=== PATIENT | female | born 1940 | race Caucasian/White ===

== ENCOUNTER 2016-10-24 11:39 | Inpatient (IN) | payer OTHER ==
--- NOTE | 2016-10-24 11:43 | EDPHY ---
H & P Time Seen by Provider: 10/24/16 11:41 HPI/ROS: Chief complaint. Stroke activation HPI. 75-year-old female here emergent by EMS with stroke activation. Apparently last seen normal about 30 minutes ago. Found on floor with left facial droop and decreased use of left arm and left leg. Patient is awake but really he can only murmur answers yes or no. Paperwork comes with the patient of DNR and no intubation or parental feedings. Patient is unable to tell me whether she is having headache, chest discomfort or trouble breathing. Apparently from review of paperwork she has not had similar symptoms previously. ROS Constitutional. no fever/chills, no weakness Eyes. no problems with vision ENT. no sore throat, no nasal drainage Cardiovascular. no chest pain Respiratory. no shortness of breath, no cough Abdominal. no abdominal pain, no nausea/vomiting, no diarrhea . no problems urinating MS. no calf pain/swelling, no neck/back pain, no joint pain Skin. no rash Lymph. no swollen glands Neuro. Left facial droop and left arm and leg weakness Past Medical/Surgical History: Dementia, hypertension Social History: , nonsmoker, no alcohol Physical Exam: General Appearance: Arousable well-developed female moderate distress. Vital signs are stable Eyes: Pupils equal and round no pallor or injection. ENT, Mouth: Mucous membranes are moist. Respiratory: There are no retractions, lungs are clear to auscultation. Cardiovascular: Regular rate and rhythm. Gastrointestinal: Abdomen is soft and nontender, no masses, bowel sounds normal. Neurological: Awake and alert, sensory and motor exams grossly normal. Speech is slurred. Obvious left facial droop. Patient really can't participate in neurologic exam due to altered mental status. She does murmur yes or no to questions but does not open her eyes to command. She does not move her arms or legs to commands. Left-sided weakness Skin: Warm and dry, no rashes. Musculoskeletal: Neck is supple nontender. Extremities symmetrical, full range of motion. Psychiatric: Patient is oriented X 1, there is no agitation. Constitutional: Initial Vital Signs Heart Rate 90 10/24/16 12:00 Respiratory Rate 20 10/24/16 12:00 Blood Pressure 159/82 H 10/24/16 12:00 O2 Sat (%) 95 10/24/16 12:00 O2 Delivery Mode Nasal Cannula O2 (L/minute) 2 Allergies/Adverse Reactions: alendronate sodium Allergy (Verified 10/24/16 11:53) pravastatin Allergy (Verified 10/24/16 11:53) rosuvastatin [From Crestor] Allergy (Verified 10/24/16 11:53) Sulfa (Sulfonamide Antibiotics) Allergy (Verified 10/24/16 11:53) Home Medications: Medication Instructions Recorded Acetaminophen [Tylenol ES 500 mg 1,000 mg PO BID 10/24/16 (*)] Acyclovir [Zovirax 400 mg (*)] 400 mg PO 5XD PRN 10/24/16 Aspirin EC [Aspirin EC 81 mg (*)] 81 mg PO HS 10/24/16 Bupropion HCl 150 mg PO BID 10/24/16 Calcium Carbonate [Tums 500MG (*)] 1,000 mg PO DAILY 10/24/16 Calcium Carbonate [Tums 500MG (*)] 500 mg PO BID 10/24/16 Cholecalciferol Vit D3 [Vitamin D3 2,000 units PO DAILY 10/24/16 (*)] Cholecalciferol Vit D3 [Vitamin D3 2,000 units PO DAILY 10/24/16 (*)] Docusate Sodium [Colace 100 MG (*)] 100 mg PO BID 10/24/16 Herbals/Supplements -Info Only 1 ea PO DAILY 10/24/16 Lisinopril [Zestril 20 mg (*)] 20 mg PO HS 10/24/16 Lovastatin 40 mg PO HS 10/24/16 Omeprazole [Prilosec 20 mg] 20 mg PO DAILY 10/24/16 Sennosides 17.2 mg PO BID 10/24/16 amLODIPine BESYLATE [Norvasc 10 mg 10 mg PO HS 10/24/16 (*)] Medical Decision Making - Diagnostics EKG Interpretation: EKG interpreted by me shows normal sinus rhythm with normal interval and axis. QRS is otherwise normal there is no significant ST elevation or depression. No arrhythmia. The rate is 88 Imaging Results: Imaging Impressions Head CT 10/24/16 11:41 Impression: Large right parietal hemorrhage with intraventricular component. Initial results called to Dr. Low Mann at 11:55 AM. Final concordant results are dictated at 12:09 PM. General information for patients regarding this examination can be found at [email or web address]. If you have questions or comments about this report, please contact me at (hospital) or [phone] (cell). Head CT shows large right parietal hemorrhage with midline shift Procedures: IV normal saline, monitor. I-STAT ED Course/Re-evaluation: I met the patient on arrival. I took a history from EMS. I performed physical exam which showed a left facial weakness and left-sided weakness. I have consulted and discussed case with Dr. Kaur who will see the patient in the emergency department I consulted and discussed the case with Dr. Grande, neurosurgery, who will see the patient in the emergency department Patient is medicated with morphine for comfort measures I have spoken to a son who lives here and comes to the emergency department. I have also spoken to his son, Farhad, who is an infectious disease physician in [place]. I explained to him the circumstances and imaging study results. We reviewed the patient's advanced directive and treatment plan. Her sons agree with supportive measures. They are aware this is likely fatal injury Differential Diagnosis: I considered CVA, in her cranial bleeding, medication ingestion. I also considered trauma from fall Critical Care Time: Critical care time exclusive procedures 35 minutes - Data Points Laboratory Results: Laboratory Results 10/24/16 11:30 10/24/16 11:30 10/24/16 10/24/16 10/24/16 11:39 11:30 11:30 WBC RBC Hgb POC Hgb 16.0 gm/dL gm/dL (12.6-16.3) Hct POC Hct 47 % % (38-47) MCV MCH MCHC RDW Plt Count MPV Neut % (Auto) Lymph % (Auto) Rabun % (Auto) Eos % (Auto) Baso % (Auto) Nucleat RBC Rel Count Absolute Neuts (auto) Absolute Lymphs (auto) Absolute Monos (auto) Absolute Eos (auto) Absolute Basos (auto) Absolute Nucleated RBC Immature Gran % Immature Gran # PT 12.7 SEC SEC (12.0-15.0) INR 0.96 (0.83-1.16) POC Sodium 142 mEq/L mEq/L (134-144) Sodium 139 mEq/L mEq/L (134-144) POC Potassium 4.1 mEq/L mEq/L (3.3-5.0) Potassium 4.5 mEq/L mEq/L (3.5-5.2) POC Chloride 105 mEq/L mEq/L (97-110) Chloride 105 mEq/L mEq/L (97-110) Carbon Dioxide 20 mEq/l L mEq/l (22-31) Anion Gap 14 mEq/L mEq/L (8-16) POC BUN 18 mg/dL mg/dL (7-23) BUN 17 mg/dL mg/dL (7-23) Creatinine 0.6 mg/dL mg/dL (0.6-1.0) POC Creatinine 0.6 mg/dL mg/dL (0.6-1.0) Estimated GFR > 60 Glucose 167 mg/dL H mg/dL (70-100) POC Glucose 175 mg/dL H mg/dL (70-100) Calcium 9.7 mg/dL mg/dL (8.5-10.4) 10/24/16 11:30 WBC 15.72 10^3/uL H 10^3/uL (3.80-9.50) RBC 5.32 10^6/uL 10^6/uL (4.18-5.33) Hgb 15.1 g/dL g/dL (12.6-16.3) POC Hgb Hct 45.1 % % (38.0-47.0) POC Hct MCV 84.8 fL fL (81.5-99.8) MCH 28.4 pg pg (27.9-34.1) MCHC 33.5 g/dL g/dL (32.4-36.7) RDW 14.8 % % (11.5-15.2) Plt Count 245 10^3/uL 10^3/uL (150-400) MPV 10.6 fL fL (8.7-11.7) Neut % (Auto) 89.3 % H % (39.3-74.2) Lymph % (Auto) 6.0 % L % (15.0-45.0) Rab[place] % (Auto) 4.0 % L % (4.5-13.0) Eos % (Auto) 0.0 % L % (0.6-7.6) Baso % (Auto) 0.1 % L % (0.3-1.7) Nucleat RBC Rel Count 0.0 % % (0.0-0.2) Absolute Neuts (auto) 14.02 10^3/uL H 10^3/uL (1.70-6.50) Absolute Lymphs (auto) 0.95 10^3/uL L 10^3/uL (1.00-3.00) Absolute Monos (auto) 0.63 10^3/uL 10^3/uL (0.30-0.80) Absolute Eos (auto) 0.00 10^3/uL L 10^3/uL (0.03-0.40) Absolute Basos (auto) 0.02 10^3/uL 10^3/uL (0.02-0.10) Absolute Nucleated RBC 0.00 10^3/uL 10^3/uL (0-0.01) Immature Gran % 0.6 % % (0.0-1.1) Immature Gran # 0.10 10^3/uL 10^3/uL (0.00-0.10) PT INR POC Sodium Sodium POC Potassium Potassium POC Chloride Chloride Carbon Dioxide Anion Gap POC BUN BUN Creatinine POC Creatinine Estimated GFR Glucose POC Glucose Calcium Medications Given: Discontinued Medications Morphine Sulfate (Morphine) 6 mg IVP EDNOW ONE Stop: 10/24/16 12:25 Last Admin: 10/24/16 13:12 Dose: 6 mg Point of Care Test Results: 10/24/16 11:39 POC Sodium 142 POC Potassium 4.1 POC Chloride 105 POC BUN 18 POC Creatinine 0.6 POC Glucose 175 H Departure - Departure Disposition: [facility] Inpatient Acute Clinical Impression: Intracranial bleed Condition: Critical
[2016-10-24 12:03] LABS: % IMMATURE GRANULYOCYTES 0.6 % (0.0-1.1); ADD DIFF? NO; ADD MORPH? NO; ADD SCAN? NO; ATYPICAL LYMPHOCYTE FLAG 0 (0-99); FRAGMENT RBC FLAG 0 (0-99); HEMATOCRIT 45.1 % (38.0-47.0); HEMOGLOBIN 15.1 g/dL (12.6-16.3); LEFT SHIFT FLG 0 (0-99); LIPEMIA HEMOLYSIS FLAG 80 (0-99); MEAN CELL HEMOGLOBIN 28.4 pg (27.9-34.1); MEAN CELL HEMOGLOBIN CONCENTR. 33.5 g/dL (32.4-36.7); MEAN CELL VOLUME 84.8 fL (81.5-99.8); MEAN PLATELET VOLUME 10.6 fL (8.7-11.7); PLATELET CLUMPS FLAG 20 (0-99); PLATELET COUNT 245 10^3/uL (150-400); RED BLOOD CELL COUNT 5.32 10^6/uL (4.18-5.33); RED CELL DISTRIBUTION WIDTH 14.8 % (11.5-15.2)
[2016-10-24 12:15] LABS: ANION GAP 14 mEq/L (8-16); CALCIUM 9.7 mg/dL (8.5-10.4); CARBON DIOXIDE 20 mEq/l (22-31); CHLORIDE 105 mEq/L (97-110); CREATININE 0.6 mg/dL (0.6-1.0); GLOMERULAR FILTRATION RATE > 60; GLUCOSE 167 mg/dL (70-100); POTASSIUM 4.5 mEq/L (3.5-5.2); SODIUM 139 mEq/L (134-144)
[2016-10-24 12:22] LABS: INR 0.96 (0.83-1.16); PROTIME(PATIENT) 12.7 SEC (12.0-15.0)
--- NOTE | 2016-10-24 12:22 | CPEKG ---
Heart Rate: 88 RR Interval: 682 P-R Interval: 164 QRSD Interval: 82 QT Interval: 404 QTC Interval: 489 P [place]: 76 QRS [place]: 36 T Wave [place]: 60 EKG Severity - BORDERLINE ECG - EKG Impression: SINUS RHYTHM EKG Impression: PROBABLE LEFT ATRIAL ABNORMALITY EKG Impression: BORDERLINE PROLONGED QT INTERVAL Electronically Signed By: Low Mann 24-Oct-2016 15:50:46
[2016-10-24] MEDS ORDERED: PROMETHAZINE HCL 25 MG SUPPR PR PRN (14:45)
[2016-10-24] MEDS ORDERED: ONDANSETRON DISINTEGRATING 4 MG TAB PO PRN (14:45)
--- NOTE | 2016-10-24 15:15 | GCON ---
[f rep st] CONSULTATION CONSULTATION. DATE OF CONSULTATION: 10/24/2016 CONSULTNG SERVICE: Low Mann M.D., Emergency Medicine. REASON FOR CONSULT: Large intraparenchymal and intraventricular hemorrhage on the right side. HISTORY OF PRESENT ILLNESS: The patient is a 75-year-old female with multiple medical problems, a h istory of dementia who requires assistance at her place of living who was brought in as a stroke curly rt today for left-sided stroke symptoms. A head CT was performed and she was found to have a very l arge right-sided basal gangliar hemorrhage with extension into the ventricular system, some early hy drocephalus and midline shift. Her family is present and they have confirmed that her code status is DNR and she also has advance d irectives indicating she does not want aggressive medical measures or to be in a prolonged supportiv e state if her prognosis is poor. I talked to 2 of her sons about this including 1 son named Farhad hayes is an ID doctor in [place] and is currently in route to be here with his mother. PAST MEDICAL AND SURGICAL HISTORY: High blood pressure. ALLERGIES: Alendronate, pravastatin, rosuvastatin, and sulfa. HOME MEDICATIONS: Amlodipine, sennosides, bupropion, aspirin 81, Tylenol, lisinopril and Colace. FAMILY HISTORY: No known history of intracranial hemorrhage. SOCIAL HISTORY: Dependent, living in an assisted living facility. No alcohol, tobacco or drug abus e per family. Unable to obtain from the patient. REVIEW OF SYSTEMS: Unable to obtain from the patient given her near comatose state. PHYSICAL EXAMINATION: VITAL SIGNS: Blood pressure has ranged from 133-159 systolic to 82-105 systo lic since arrival to the ED. Heart rate 86-90, respiratory rate 16-20, saturations 95%-96% on 2 L n gary cannula. T current 36.2. NEUROLOGIC: The patient is asleep with rancorous breathing on the g urney. When you call her name her eyelids do quiver, but she does not open her eyes to voice or sti mulus. She does mumble yes/no very lowly and appropriately to questioning. She does follow simple commands on the right side but she has no motor function on the left. She is flaccid in terms of he r reflex exam on the left side. REVIEW OF IMAGING: I reviewed the patient's head CT and agree that it reveals a large basal ganglia r hemorrhage measuring 7.2 x 3.7 x 4.47 cm with a vfldo-nh-twig shift 6.2 mm, with some interventric ular extension. LABORATORY: White blood cell count 15.72, hemoglobin 15.1, platelet count 245, PT/INR 12.7/0.96. S odium 139, potassium 4.5, BUN 17, creatinine 0.6, glucose 175, calcium 9.7. IMPRESSION AND PLAN: The patient is a 75-year-old female with multiple medical problems, dementia, who is dependent in assisted living facility whose code status is DNR and who has advance directives that she would not want aggressive measures taken in the face of a poor prognosis. She has a very large right-sided basal gangliar hemorrhage and a fairly poor neurologic exam at this point in time. Even if she were in the best of health, early evacuation for basal gangliar hemorrhage is usually no t the 1st steps of care and in her state in particular, aggressive surgical measures are not recomme nded given her clear advance directives. Even if we were to maximally medically and surgically niranjan t her, she would require over a year of aggressive stroke rehabilitation and recovery at which point in time she would likely still have dementia and significant dysfunction of the left side of her catrina dy, making her even more dependent than she is today and further decreasing her quality of life than she knows it to be today. I have discussed all this with Dr. Mann in the emergency room and with 2 of her sons including An dy, a physician on the telephone, and they are in complete agreement. At this point in time, it see ms that the family will be moving toward comfort measures. I do not think that is a poor decision. If I am of need in any way, please do not hesitate to contact me. Thank you so much. /[id number]/MODL
--- NOTE | 2016-10-24 15:24 | GHP ---
[f rep st] HISTORY AND PHYSICAL DATE OF ADMISSION: 10/24/2016 CHIEF COMPLAINT: Altered mental status. HISTORY OF PRESENT ILLNESS: This is a 75-year-old female, with history of Alzheimer dementia, who r esides at the [facility], who was brought to the emergency department as a stroke alert after she was found unresponsive. The patient's son called the [facility] this morning to check on her since he had not heard from her since last evening when she was having trouble getting her TV to work and was ve ry "stressed." When she was checked on she was found to be sleeping. About an hour later, the kimberly ent reportedly had a fall and was brought to the emergency department as a stroke alert. In the [facility] department a head CT was done that demonstrated a large right parietal hemorrhage with an int raventricular component. During the time of my exam, the patient is unarousable. All history was obtained via discussions wi th her son as well as Dr. Mann in the emergency department. PAST MEDICAL HISTORY: 1. Alzheimer's dementia. 2. Hypertension. 3. Gastroesophageal reflux disease. 4. Small bowel obstruction. PAST SURGICAL HISTORY: 1. Cataract surgery. 2. Bilateral knee replacements. 3. Back surgery. HOME MEDICATIONS: Reviewed. Refer to [employer] for details. ALLERGIES: Fosamax, pravastatin, rosuvastatin, sulfa. SOCIAL HISTORY: The patient resides at the [facility]. There is no history of alcohol, tobacco, or i llicit drug use. FAMILY HISTORY: Reviewed and noncontributory. REVIEW OF SYSTEMS: Comprehensive 10-point review of systems was attempted, but unobtainable due the patient's altered mental status. PHYSICAL EXAM: VITAL SIGNS: Blood pressure 167/102, pulse 95, respiratory rate 20, O2 saturation 9 2% on 4 L, temperature afebrile. GENERAL: Comfortable, but unarousable. HEAD: Normocephalic, atr aumatic. Eyes: Pupils are pinpoint and minimally reactive and they are symmetric. Mouth: Moist m ucous membranes. NECK: Supple. No lymphadenopathy. CARDIOVASCULAR: S1, S2. No JVD. No lower e xtremity edema. PULMONARY: Lungs are clear. No wheezes, rales, or rhonchi. ABDOMEN: Soft, nonte nder, nondistended. No guarding or rebound tenderness. Normoactive bowel sounds. EXTREMITIES: No clubbing or cyanosis. NEURO: The patient is unarousable and does not follow commands. She does n ot have any decorticate or decerebrate posturing. She is not hyperreflexic. DIAGNOSTICS: Head CT which I visualized and personally interpreted, shows a large right parietal he morrhage with intraventricular components. EKG which I visualized and personally interpreted, shows sinus rhythm, rate 88 beats per minute and borderline prolonged QT interval. ASSESSMENT AND PLAN: This is a 75-year-old female with history of Alzheimer's dementia, presenting with large right parietal hemorrhage with intraventricular component. PLAN: I discussed the case with Dr. Mann in the emergency department who tells me she had been s een by Dr. St of Neurosurgery. The patient does have a MOS form in her chart, where she has antonio cated that she would like to be DNR status and does not want aggressive medical treatment. I discus sed options with the patient's son, who is in agreement to pursue comfort care and wait and see if h is mother's condition improves. He is aware that her overall prognosis is quite poor. The patient will be admitted to the hospital under inpatient status where the comfort care order set has been initiated. Will consider hospice consultation in the morning. /[id number]/MODL
--- NOTE | 2016-10-25 11:04 | HOSPPROG ---
Hospitalist Progress Note Assessment/Plan: 75 y/o female with #large basal ganglia hemorrhage -neuro consult note reviewed -poor prognosis -family is in agreement to continue comfort care and pursue hospice #h/o Alz Dementia #h/o hypertension with elevated BP likely due to increased ICP dispo: continue inpatient care for now hospice consult ordered Subjective: pt is unarousable Objective: Vital Signs Temp Pulse Resp BP Pulse Ox 37.6 C 92 20 161/115 H 96 10/25/16 08:24 10/25/16 08:24 10/25/16 08:24 10/25/16 08:24 10/25/16 08:24 PT 12.7 SEC (12.0-15.0) 10/24/16 11:30 INR 0.96 (0.83-1.16) 10/24/16 11:30 - Physical Exam Constitutional: no apparent distress, not in pain Eyes: other (pupils constricted) Cardiovascular: regular rate and rhythym, no murmur, rub, or gallop Respiratory: no respiratory distress, no rales or rhonchi, clear to auscultation Neurologic: other (aao x 0; not following commands; no posturing), No facial droop ICD10 Worksheet Patient Problems: Problems Problem Status Onset Intracranial bleed Acute
[2016-10-25] MEDS: LORazepam 2 MG/ML INJ IVP PRN ×4 (14:49→23:46)
[2016-10-25] MEDS: ACETAMINOPHEN 650 MG SUPP PR PRN (20:58)
[2016-10-26] MEDS: LORazepam 2 MG/ML INJ IVP PRN ×3 (03:09→22:51)
[2016-10-26] MEDS ORDERED: morphINE 10 MG/0.5 ML UDSYR PO PRN (12:26)
--- NOTE | 2016-10-26 13:35 | HOSPPROG ---
Hospitalist Progress Note Assessment/Plan: 75 y/o female with #large basal ganglia hemorrhage -neurosurgery consult note reviewed -poor prognosis -family is in agreement to continue comfort care and pursue hospice #h/o Alz Dementia #h/o hypertension with elevated BP likely due to increased ICP dispo: continue inpatient care for now hospice consult ordered Subjective: pt continues to be unresponsive Objective: Vital Signs Temp Pulse Resp BP Pulse Ox 38.1 C 101 H 18 171/114 H 90 L 10/26/16 08:00 10/26/16 08:00 10/26/16 08:00 10/26/16 08:00 10/26/16 08:00 PT 12.7 SEC (12.0-15.0) 10/24/16 11:30 INR 0.96 (0.83-1.16) 10/24/16 11:30 - Physical Exam Cardiovascular: regular rate and rhythym, no murmur, rub, or gallop Respiratory: no respiratory distress, no rales or rhonchi, clear to auscultation Neurologic: other (aaox0, pupils pinpoint and symetric) ICD10 Worksheet Patient Problems: Problems Problem Status Onset Intracranial bleed Acute
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
--- NOTE | 2016-10-26 18:35 | GCON ---
[f rep st] CONSULTATION CHART UPDATE. I had a conference today with family and hospice, palliative care, regarding the patient's prognosis and her medical condition. Twenty minutes was spent with the family as well as palliative care dur ing this conference, going over her medical problem as well as prognosis associated with this. The family was present and will decide on her further care. All questions and concerns were answered. /[id number]/MODL
[2016-10-27] MEDS: LORazepam 2 MG/ML INJ IVP PRN ×2 (09:14→20:21)
--- NOTE | 2016-10-27 14:20 | HOSPPROG ---
Hospitalist Progress Note Assessment/Plan: 75 y/o female with AMS. This is my first encounter. Chart reviewed. D/W Palliative Care. #large basal ganglia hemorrhage -neurosurgery consult note reviewed -poor prognosis -family is in agreement to continue comfort care and hospice #h/o Alz Dementia #h/o hypertension with elevated BP likely due to increased ICP dispo: continue inpatient care for now discharge to Hospice tomorrow reviewed with CM and Palliative care Subjective: Unresponsive, Objective: Vital Signs Temp Pulse Resp BP Pulse Ox 37.1 C 89 18 169/96 H 89 L 10/26/16 20:00 10/27/16 08:44 10/27/16 08:44 10/27/16 08:44 10/27/16 08:44 10/26/16 10/27/16 10/28/16 05:59 05:59 05:59 Output Total 1600 Balance -1600 PT 12.7 SEC (12.0-15.0) 10/24/16 11:30 INR 0.96 (0.83-1.16) 10/24/16 11:30 - Physical Exam Constitutional: appears nourished, not in pain, chronically ill appearing Eyes: anicteric sclera Ears, Nose, Mouth, Throat: ears appear normal, dry mucous membranes, No oral thrush Cardiovascular: No JVD, No tachycardia, No edema Respiratory: no respiratory distress, no rales or rhonchi, reduced air movement Gastrointestinal: No tenderness, No ascites, No guarding Skin: warm, normal color, No erythema Musculoskeletal: no joint effusions, No full muscle strength, No joint tenderness Neurologic: No AAOx3 Psychiatric: encephalopathic, No anxious, No agitated ICD10 Worksheet Patient Problems: Problems Problem Status Onset Intracranial bleed Acute Palliative care encounter Acute
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
[2016-10-27] MEDS: ACETAMINOPHEN 650 MG SUPP PR PRN (22:14)
[2016-10-28 08:16] VITALS: BP 178/116; PULSE 95; RESP 24; TEMP 99.9; O2SAT 90
[2016-10-28] MEDS: ACETAMINOPHEN 650 MG SUPP PR PRN (08:18)
--- NOTE | 2016-10-28 10:36 | PDIAF ---
- Diagnosis Diagnosis: CVA Code Status: Do Not Resuscitate - Medication Management Discharge Medications: Medications to Continue on Transfer Acetaminophen [Tylenol Rectal] 650 mg LA Q4HRS PRN #0 supp 10/28/16 [Last Taken Unknown] Promethazine HCl [Phenergan Rectal] 25 mg LA Q6HRS PRN #0 suppr 10/28/16 [Last Taken Unknown] morphINE [Roxanol 10 mg/0.5 ml oral soln (*)] 5 - 10 mg PO Q2HRS PRN #0 udsyr [Last Taken Unknown] Discharge Medications: Refer to the Discharge Home Medication list for PRN reason. PICC Care - Routine: N/A - Orders Services needed: Registered Nurse - Follow Up Care Current Providers and Referrals: GISELA ADHIKARI [Other]
--- NOTE | 2016-10-28 14:36 | GDS ---
[f rep st] DISCHARGE SUMMARY DISCHARGE DIAGNOSES: 1. Large basal ganglion hemorrhage. 2. History of Alzheimer dementia. 3. Hypertension. CONSULTATIONS: 1. Palliative Care. 2. Neurosurgery. STUDIES AND PROCEDURES: CT of the head. PHYSICAL EXAM: GENERAL: The patient is unresponsive. VITAL SIGNS: Afebrile at 37.7. Pulse is 95 . Respiratory rate is 24. Blood pressure is 178/116. She is saturating 90% on 4 L. I have seen a nd evaluated the patient on the day of discharge. HOSPITAL COURSE: The patient is a 75-year-old female who presented to the emergency room with compl aints of altered mental status. She was evaluated and diagnosed with a large basal ganglion hemorrh age. During this hospitalization, she received a consultation from Neurosurgery. Intervention was not recommended. The patient had a hospice consult and will be discharged to hospice inpatient. Maikel villalpando does have a history of Alzheimer dementia as well as noted hypertension. Her hypertension is not being treated. She will be placed on comfort measures and be transitioned to inpatient hospice. DISCHARGE MEDICATIONS: Please refer to EMR form. She should only be on comfort medications at this time. I have discussed her disposition with the pillowcase maker as well as the hospice nurse and the family. I have spent greater than 35 minutes in the care, coordination, and management of this patient's dis position. /[id number]/MODL
== END 2016-10-28 12:03 | disposition hospice, home (50) | DRG 66 ==
LOC: EDAGE → EDUNIT# → F3N 13:33
PROVIDERS: ADMIT Internal Medicine; ATTEND Internal Medicine
DX: I61.0 Nontraumatic intracerebral hemorrhage in hemisphere, subcortical (principal); G30.9 Alzheimer's disease, unspecified; F02.80 Dementia in other diseases classified elsewhere, unspecified severity, without behavioral disturbance, psychotic disturbance, mood disturbance, and anxiety; K21.9 Gastro-esophageal reflux disease without esophagitis; I10 Essential (primary) hypertension; M54.9 Dorsalgia, unspecified; R33.9 Retention of urine, unspecified; Z66 Do not resuscitate
CPT/HCPCS: 82947-QW; 96374; J2060